=== PATIENT | female | born 1950 | race Caucasian/White ===

== ENCOUNTER → 2018-07-27 | Outpatient (CLI) | payer OTHER ==
[~2018-07-27] MED LIST: ATENOLOL 25 MG25 M1 PO; PAXIL10 MG PO
== END ==
LOC: M.RAD 10:22
DX: Z12.31 Encounter for screening mammogram for malignant neoplasm of breast (principal)

== ENCOUNTER → 2021-08-01 | Outpatient (CLI) | payer OTHER | LOC: M.RAD 13:17 | PROVIDERS: ATTEND Internal Medicine Geriatric Medicine | DX: Z12.31 Encounter for screening mammogram for malignant neoplasm of breast (principal) ==